=== PATIENT | female | born 1955 | race African-American/Black ===

== ENCOUNTER 2016-10-12 19:41 | Emergency (ER) | payer OTHER ==
[~2016-10-12] VITALS: Ht 160 cm; Wt 99.8 kg
--- NOTE | 2016-10-12 19:45 | NUR ---
PT PRESENTED TO THE ER WITH A C/O SOB. PT HAS BILATERAL WHEEZES NOTED. PT AMBULATED TO BED #11 WITH A STEADY GAIT.
[2016-10-12] MEDS ORDERED: ALBUTEROL FS 2.5 MG/0.5 ML VIAL.NEB NEB ONE (20:00)
[2016-10-12] MEDS ORDERED: IPRATROPIUM NEB FS 0.5 MG/2.5 ML AMPUL.NEB NEB ONE (20:00)
[2016-10-12] MEDS ORDERED: predniSONE 20 MG TABLET PO ONE (20:30)
[2016-10-12] MEDS ORDERED: IPRATROPIUM NEB FS 0.5 MG/2.5 ML AMPUL.NEB ONE (20:43)
[2016-10-12] MEDS ORDERED: ALBUTEROL FS 2.5 MG/0.5 ML VIAL.NEB ONE (20:44)
[2016-10-12] MEDS ORDERED: predniSONE 10 MG TABLET ONE (20:56)
[2016-10-12] MEDS ORDERED: predniSONE 20 MG TABLET ONE (20:56)
--- NOTE | 2016-10-12 21:28 | NUR ---
Patient discharged to home in stable condition. Written and verbal after care instructions given. Patient verbalizes understanding of instruction AND RX. PT AMBULATED OUT WITH A STEADY GAIT. VSS. PT'S IS DRIVING PT HOME.
[2016-10-12 21:31] VITALS: BP 154/86
== END 2016-10-12 21:32 | disposition home or self-care (01) ==
LOC: ER 19:42
DX: J45.909 Unspecified asthma, uncomplicated (principal); I10 Essential (primary) hypertension; Z91.011 Allergy to milk products
CPT/HCPCS: 71010-TC; A4606; Z7610

== ENCOUNTER 2016-11-05 21:24 | Emergency (ER) | payer OTHER ==
[~2016-11-05] VITALS: Ht 160 cm; Wt 99.8 kg
[2016-11-05 21:35] VITALS: BP 145/98
--- NOTE | 2016-11-05 21:35 | NUR ---
PT AMBUALTORY TO ER BED 7 C/O BODY RASH. PT STATES "IM CURRENTLY STAYING AT A HOTEL AND BEGAN TO GET ITCHY X 1 WEEK" PT AOX4 RR EVEN AND UNLABORED. NO SOB NOTED. NAD NOTED. NO NVD AT THIS TIME. PT WAITING FOR MD NAVAS.
== END 2016-11-05 22:26 | disposition home or self-care (01) ==
LOC: ER 21:28
DX: S40.862A Insect bite (nonvenomous) of left upper arm, initial encounter (principal); S40.861A Insect bite (nonvenomous) of right upper arm, initial encounter; I10 Essential (primary) hypertension; J45.909 Unspecified asthma, uncomplicated; Z91.011 Allergy to milk products; W57.XXXA Bitten or stung by nonvenomous insect and other nonvenomous arthropods, initial encounter; Y93.89 Activity, other specified; Y92.89 Other specified places as the place of occurrence of the external cause; Y99.9 Unspecified external cause status
CPT/HCPCS: 99282; A4606; Z7610

== ENCOUNTER 2018-08-10 09:20 | Emergency (ER) | payer OTHER ==
[~2018-08-10] VITALS: Ht 160 cm; Wt 94.3 kg
--- NOTE | 2018-08-10 09:40 | NUR ---
PT BIB SELF SOB SINCE 499, PARTIAL RELIEF WITH ALBUTEROL INHALER AND ADVAIR, PT IS AAOX4, NOT IN RESPIRATORY DISTRESS, V/S STABLE, KEPT RESTED AND COMFORTABLE. SEEN AND EXAMINE BY DR. MEREDITH.
--- NOTE | 2018-08-10 09:46 | NUR ---
LABS DRAWNED AND SENT TO LAB. AWAITING RESULTS.
[2018-08-10 09:50] LABS: BASOPHILS # (AUTO) 0.1 /CMM (0.0-0.2); BASOPHILS % (AUTO) 0.7 % (0.0-2.0); EOSINOPHILS % (AUTO) 3.3 % (0.0-6.0); HEMATOCRIT 42 % (33-45); HEMOGLOBIN 13.8 g/dL (11.5-14.8); LYMPHOCYTES # (AUTO) 2.2 /CMM (0.8-4.8); LYMPHOCYTES % (AUTO) 30.9 % (20.0-44.0); MEAN CORPUSCULAR HGB CONC 33 g/dl (31.0-36.0); MEAN CORPUSCULAR VOLUME 83 fL (82-100); MONOCYTES # (AUTO) 0.7 /CMM (0.1-1.30); MONOCYTES % (AUTO) 10.1 % (2.0-12.0); PLATELET COUNT (AUTO) 133 /CMM (150-450); RED BLOOD CELL COUNT(AUTO) 5.07 MIL/uL (4.0-5.2); WHITE BLOOD COUNT (AUTO) 7.2 K/uL (4.3-11.0)
--- NOTE | 2018-08-10 09:50 | NUR ---
RADIOLOGY AT BEDSIDE FOR XRAY.
[2018-08-10 09:57] LABS: CALCIUM, SERUM 8.6 mg/dL (8.5-10.1); CARBON DIOXIDE 30 mmol/L (21-32); CHLORIDE 104 mmol/L (98-107); CREATININE 0.8 mg/dL (0.6-1.3); GLUCOSE 107 mg/dL (74-106); SODIUM SERUM 139 mmol/L (136-145); UREA NITROGEN, BLOOD 15 mg/dL (7-18)
--- NOTE | 2018-08-10 10:41 | NUR ---
Patient discharged to home in stable condition. Written and verbal after care instructions given. Patient verbalizes understanding of instruction.
[2018-08-10 10:42] VITALS: BP 135/78
== END 2018-08-10 10:42 | disposition home or self-care (01) ==
LOC: ER 09:21
DX: J45.909 Unspecified asthma, uncomplicated (principal); I10 Essential (primary) hypertension; Z88.8 Allergy status to other drugs, medicaments and biological substances
CPT/HCPCS: 36415; 71045; 80048; 84484; 85025; 85730; 93005; 99284; A4606; Z7610

== ENCOUNTER 2019-09-12 16:13 | Emergency (ER) | payer SELFPAY ==
[~2019-09-12] VITALS: Ht 160 cm; Wt 90.3 kg
--- NOTE | 2019-09-12 16:49 | NUR ---
PT AAOX4. AMBULATORY. C/O COUGH X 1 WEEK, WANTS TO BE CHECKED SINCE SHE RAN OUT OF HER INHALER 3 MONTHS AGO. MD AT BEDSIDE FOR EVAL. VSS. NO ACUTE DISTRESS NOTED. RR EVEN AND UNALBORED. AWAITING MD FOR EVAL.
[2019-09-12] MEDS ORDERED: predniSONE 20 MG TABLET ONE (17:00)
--- NOTE | 2019-09-12 17:00 | NUR ---
Prednisone given. Awaiting RT
[2019-09-12] MEDS: predniSONE 20 MG TABLET PO ONE (17:02)
[2019-09-12] MEDS: ALBUTEROL FS 2.5 MG/3 ML VIAL.NEB NEB ONE (17:03)
[2019-09-12] MEDS: IPRATROPIUM NEB FS 0.5 MG/2.5 ML AMPUL.NEB NEB ONE (17:03)
[2019-09-12] MEDS ORDERED: ALBUTEROL FS 2.5 MG/3 ML VIAL.NEB ONE (17:04)
[2019-09-12] MEDS ORDERED: IPRATROPIUM NEB FS 0.5 MG/2.5 ML AMPUL.NEB ONE (17:04)
--- NOTE | 2019-09-12 17:07 | NUR ---
RT AT BEDSIDE
--- NOTE | 2019-09-12 17:10 | NUR ---
RECIEVING BREATHING TREATMENT.
--- NOTE | 2019-09-12 17:28 | NUR ---
PT RECIEVED BREATHING TREATMENT. STATES "I CAN BREATHE BETTER" -SOB
[2019-09-12 18:03] VITALS: BP 142/82
--- NOTE | 2019-09-12 18:03 | NUR ---
Patient discharged to home in stable condition. Written and verbal after care instructions given. Patient verbalizes understanding of instruction and RX. VSS. RR even and unlabored. Ambulated with steady gait.
== END 2019-09-12 18:04 | disposition home or self-care (01) ==
LOC: ER 16:20
DX: J45.909 Unspecified asthma, uncomplicated (principal); I10 Essential (primary) hypertension; Z91.011 Allergy to milk products
CPT/HCPCS: 94640; 99285; J7512